=== PATIENT | female | born 1990 | race Caucasian/White ===

== ENCOUNTER 2024-08-26 17:16 | Emergency (ER) | payer BC, MEDICAID, SELFPAY ==
[2024-08-26 17:37] VITALS: BP 117/75; PULSE 72; RESP 14; TEMP 36.7; O2SAT 100; BMI 20.9
--- NOTE | 2024-08-26 18:44 | USR_ITS ---
PROCEDURE INFORMATION: Exam: US , Limited Exam date and time: 08/26/2024 7:00 PM Age: 34 years old Clinical indication: Lmp or gestational age (in weeks): 13 w 2d; Antepartum complications; Other: Discharge; ; Additional info: Yellowish watery discharge. Concern for ivf fetus. LABS AND CLINICAL REPORTS: Gestational age (Established): 13 w 2 d Estimated due date (Established): 03/01/2025 TECHNIQUE: Imaging protocol: Real-time ultrasound of the maternal uterus with image documentation. Exam focused on the clinical indication. COMPARISON: No relevant prior studies available. FINDINGS: Gestation: Single intrauterine . Age not determined. heart rate: 155 bpm Placenta: Placenta appears somewhat low-lying, short-term interval follow-up advised to assess for possible placenta previa. MATERNAL: Cervix: Cervical length measures 3.8 cm. US/US OB limited [id number] IMPRESSION: 1. Single live intrauterine . 2. Placenta appears somewhat low-lying, short-term interval follow-up advised to assess for possible placenta previa. 3. Cervix is closed and normal in length measuring 3.8 cm
--- NOTE | 2024-08-26 18:48 | ED_ITS ---
HPI - 2 General: Chief complaint: Vaginal Bleeding Stated complaint: 14 weeks preg- discharge brown fluid Time Seen by Provider: 08/26/24 18:41 History of Present Illness: 34-year-old female who is just over 14 w eeks with an IVF fetus who presents the emergency room after she had what she thinks is vaginal discharge. She said she felt a warm liquid and it was watery and brownish. She has had no bleeding. No pain. No contractions. No fevers. No dysuria. No nausea or vomiting. She talked to her medical operations supervisor who told her to come to the emergency room to be evaluated. She is concerned this might be amniotic fluid. She says she just wants to make sure the baby is okay Related Data Allergies Allergy/AdvReac Type Severity Reaction Status Date / Time No Known Allergies Allergy Verified 08/26/24 17:41 Review of Systems 2 Narrative: Constitutional symptoms: Negative except as documented in HPI. Skin symptoms: Negative except as documented in HPI. Eye symptoms: Negative except as documented in HPI. ENMT symptoms: Negative except as documented in HPI. Respiratory symptoms: Negative except as documented in HPI. Cardiovascular symptoms: Negative except as documented in HPI. Gastrointestinal symptoms: Negative except as documented in HPI. Genitourinary symptoms: Negative except as documented in HPI. Musculoskeletal symptoms: Negative except as documented in HPI. Neurologic symptoms: Negative except as documented in HPI. Psychiatric symptoms: Negative except as documented in HPI. Endocrine symptoms: Negative except as documented in HPI. Physical Exam 2 Narrative: EXAM NARRATIVE: General: Alert, no acute distress. Skin: Warm, dry. Head: Normocephalic, atraumatic. Neck: Supple, trachea midline. Eye: Extraocular movements are intact. Ears, nose, mouth and throat: mucosa moist. Cardiovascular: Regular, Normal peripheral perfusion. Respiratory: Lungs are clear to auscultation, respirations are non-labored, breath sounds are equal, Symmetrical chest wall expansion. Gastrointestinal: Soft, Nontender, Non distended Musculoskeletal: Normal ROM, no deformity. Neurological: Alert and oriented, No focal neurological deficit observed. Psychiatric: Cooperative, appropriate mood & affect. Course 2 Vital Signs: Vital signs: Vital Signs Temperature 98.1 F 08/26/24 17:37 Pulse Rate 72 08/26/24 17:37 Respiratory Rate 14 08/26/24 17:37 Blood Pressure 117/75 08/26/24 17:37 Pulse Oximetry 100 08/26/24 17:37 MDM - OB/Uterine Contractions Medical Decision Making Medical decision making: Differential diagnosis including but not limited to and based on the above HPI, review of systems and physical exam: Basic lab work and ultrasound ordered to evaluate for normal . Orders placed to evaluate differential diagnosis based on the above differential, HPI and physical exam Lab Review: Laboratory results were reviewed and interpreted by myself the emergency room physician. Lab work is unremarkable. No leukocytosis. Stable hemoglobin 11.3. Normal BUN and creatinine 11 and 0.4. Urinalysis is negative for infection. Ultrasound shows a viable around 14-week with good movement. Heart rate around 158. Awaiting official read. I reviewed the patient's medical record. Reexamination: Patient remained stable. No increased work of breathing. No altered mental status. No focal motor deficits. We discussed waiting for official results. Everything is basically normal and nothing seems to be emergent and so she will call back for official results and if anything is over read serious we will call her and have her come back. Assessment and plan: Vaginal discharge during - Discharged home - Discussed plan with patient. Answered any questions. - Evaluation and treatment of this problem were appropriate in the emergency setting. Lab Data 08/26/24 18:51 08/26/24 18:51 Laboratory Results WBC 8.13 10^3/uL (3.29-11.43) 08/26/24 18:51 RBC 3.65 10^6/uL (3.85-5.65) L 08/26/24 18:51 Hgb 11.30 g/dL (11.27-16.99) 08/26/24 18:51 Hct 35.1 % (36-47) L 08/26/24 18:51 MCV 96.2 fl (85-98) 08/26/24 18:51 MCH 31.0 pg (27-33) 08/26/24 18:51 MCHC 32.2 g/dL (30-55) 08/26/24 18:51 RDW 13.1 % (12.1-15.1) 08/26/24 18:51 Plt Count 213 10^3/cmm (157-399) 08/26/24 18:51 MPV 11.4 fL (7.4-10.4) H 08/26/24 18:51 Neut % (Auto) 73.9 % 08/26/24 18:51 Lymph % (Auto) 16.5 % 08/26/24 18:51 [place] % (Auto) 7.5 % 08/26/24 18:51 Eos % (Auto) 1.2 % 08/26/24 18:51 Baso % (Auto) 0.4 % 08/26/24 18:51 Neut # (Auto) 6.01 10^3/uL (1.8-7.7) 08/26/24 18:51 Lymph # (Auto) 1.3 10^3/uL (0.8-4.8) 08/26/24 18:51 [place] # (Auto) 0.6 10^3/uL (0.2-0.9) 08/26/24 18:51 Eos # (Auto) 0.1 10^3/uL (0.0-0.8) 08/26/24 18:51 Baso # (Auto) 0.0 10^3/uL (0.0-0.1) 08/26/24 18:51 Nucleated RBC % (auto) 0 % 08/26/24 18:51 Nucleated RBCs # 0.0 /100WBC 08/26/24 18:51 Sodium 136 mmol/L (136-145) 08/26/24 18:51 Potassium 3.4 mmol/L (3.5-5.1) L 08/26/24 18:51 Chloride 102 mmol/L (98-107) 08/26/24 18:51 Carbon Dioxide 22 mmol/L (22-29) 08/26/24 18:51 Anion Gap 15.4 (5-19) 08/26/24 18:51 BUN 11 mg/dL (6-20) 08/26/24 18:51 Creatinine 0.4 mg/dL (0.5-0.9) L 08/26/24 18:51 GFR Calculation 183.8 mL/min (90-130) H 08/26/24 18:51 Glucose 92 mg/dL (65-115) 08/26/24 18:51 Calculated Osmolality 281 mOsm/kg (285-295) L 08/26/24 18:51 Calcium 8.5 mg/dL (8.5-10.5) 08/26/24 18:51 Total Bilirubin 0.2 mg/dL (0.15-1.2) 08/26/24 18:51 AST 15 U/L (0-32) 08/26/24 18:51 ALT 14 U/L (0-33) 08/26/24 18:51 Alkaline Phosphatase 56 U/L (35-105) 08/26/24 18:51 Total Protein 6.4 g/dL (6.6-8.7) L 08/26/24 18:51 Albumin 3.9 g/dL (3.5-5.2) 08/26/24 18:51 Globulin 2.5 g/dL (1.3-4.6) 08/26/24 18:51 Ser , Semi-Qnt 30956.00 mIU/mL 08/26/24 18:51 Urine Color Yellow (Yellow) 08/26/24 19:19 Urine Appearance Clear (CLEAR) 08/26/24 19:19 Urine pH 5.5 (5-7) 08/26/24 19:19 Ur Specific [place] 1.018 (1.005-1.030) 08/26/24 19:19 Urine Protein Negative (Negative) 08/26/24 19:19 Urine Glucose (UA) Negative (Normal) 08/26/24 19:19 Urine Ketones 3+ (Negative) H 08/26/24 19:19 Urine Blood Negative (Negative) 08/26/24 19:19 Urine Nitrate Negative (Negative) 08/26/24 19:19 Urine Bilirubin Negative (Negative) 08/26/24 19:19 Urine Urobilinogen 1.0 mg/dL (Negative) 08/26/24 19:19 Ur Leukocyte Esterase Negative (Negative) 08/26/24 19:19 Urine RBC 0-2 /hpf (0-2) 08/26/24 19:19 Urine WBC 0-5 /hpf (0-5) 08/26/24 19:19 Ur Squamous Epith Cells 0-5 /hpf (0-5) 08/26/24 19:19 Amorphous Sediment Not Reportable 08/26/24 19:19 Urine Bacteria None seen /hpf (NONE) 08/26/24 19:19 Hyaline Casts 0-4 /lpf H 08/26/24 19:19 All radiology interpretation(s) finalized by discharge Discharge Plan Discharge Patient Disposition: Home Clinical Impression: Condition: Stable Discharge Orders: Discharge ED (Routine); Ordered 08/26/24 Ordered By: Flora Chapa Referrals: Omer Gallardo DO [Primary Care Provider] - Discharge Diet: Advance as tolerated Discharge Activity: Increase activity as tolerated Patient Instructions: at 15 to 18 Weeks (ED), Opioid Safety, Pain Management Activity Restrictions/Additional Instructions: Please call back for the official report of your ultrasound. Thank you for choosing [facility] for your healthcare needs today. Please realize this is an emergency room and that we are providing you with a medical screening exam and this may not be complete and all inclusive of all the testing and or work up that you may need to determine your ailment or severity of your illness. You have been screened and evaluated and felt safe for discharge. Health conditions do change or evolve sometimes and as such it is important that you follow up with your Primary Doctor to be re checked, 3-5 days is a general good time frame for follow up. You are always welcome to return to the ED for re assessment if your symptoms are worsening or you have new concerns Coding Level of Care Code ED [place] [employer] for [facility]
[2024-08-26 19:11] LABS: Basophils % 0.4 %; Eosinophils # 0.1 10^3/uL (0.0-0.8); Eosinophils % 1.2 %; Hematocrit 35.1 % (36-47); Lymphocytes # 1.3 10^3/uL (0.8-4.8); Lymphocytes % 16.5 %; Mean Corpuscular HGB Conc 32.2 g/dL (30-55); Mean Corpuscular Volume 96.2 fl (85-98); Mean Platelet Volume 11.4 fL (7.4-10.4); Monocytes # 0.6 10^3/uL (0.2-0.9); Monocytes % 7.5 %; Neutrophils # 6.01 10^3/uL (1.8-7.7); Neutrophils % 73.9 %; Nucleated Red Blood Cells % 0 %; Platelet Count 213 10^3/cmm (157-399); Red Blood Count 3.65 10^6/uL (3.85-5.65); Red Cell Distribution Width 13.1 % (12.1-15.1); White Blood Count 8.13 10^3/uL (3.29-11.43)
[2024-08-26 19:28] LABS: Bilirubin Urine Negative (Negative); Blood Urine Negative (Negative); Glucose Urine UA Negative (Normal); Ketones Urine 3+ (Negative); Leukocyte Esterase Urine Negative (Negative); Nitrate Urine Negative (Negative); Protein Urine Negative (Negative); Specific Gravity, Urine 1.018 (1.005-1.030); Urine Appearance Clear (CLEAR); Urine Color Yellow (Yellow); pH Urine 5.5 (5-7)
[2024-08-26 19:34] LABS: Bacteria Urine None Seen /hpf; Hyaline Casts Urine 0-4 /lpf; RBC Urine 0-2 /hpf (0-2); Squamous Epithelial Cell Urine 0-5 /hpf (0-5); WBC Urine 0-5 /hpf (0-5)
[2024-08-26 20:02] LABS: Alanine Aminotransferase 14 U/L (0-33); Albumin Level 3.9 g/dL (3.5-5.2); Alkaline Phosphatase 56 U/L (35-105); Anion Gap 15.4 (5-19); Aspartate Amino Transferase 15 U/L (0-32); Blood Urea Nitrogen 11 mg/dL (6-20); Calcium 8.5 mg/dL (8.5-10.5); Carbon Dioxide 22 mmol/L (22-29); Chloride 102 mmol/L (98-107); Creatinine Clr Calc Pharmacy 173.5478; Globulin 2.5 g/dL (1.3-4.6); Glomerular Filtration Rate 183.8 mL/min (90-130); Glucose 92 mg/dL (65-115); Osmolality Calculated 281 mOsm/kg (285-295); Potassium 3.4 mmol/L (3.5-5.1); Sodium 136 mmol/L (136-145); Total Bilirubin 0.2 mg/dL (0.15-1.2); Total Protein 6.4 g/dL (6.6-8.7)
[2024-08-26 20:36] VITALS: BP 110/76; PULSE 78; O2SAT 99
== END 2024-08-26 20:37 | disposition home or self-care (01) ==
PROVIDERS: Emergency Provider Emergency Medicine; PCP Obstetrics & Gynecology
DX: N98.9 Complication associated with artificial fertilization, unspecified (principal); Z3A.14 14 weeks gestation of pregnancy
CPT/HCPCS: 76815; 80053; 81001; 84702; 85025; 99284